=== PATIENT | female | born 1945 | race Caucasian/White ===

== ENCOUNTER 2017-07-07 12:19 | Day surgery (SDC) | payer MEDICARE, BC ==
[2017-07-07] MEDS ORDERED: PROPOFOL 20 ML ×2 (14:10→17:09)
[2017-07-07] MEDS ORDERED: PHENYLephrine (100 MCG/ML) 5ML SYG (14:10)
[2017-07-08] MEDS ORDERED: POLYETHYLENE GLYCOL 3350 119 GM POWDER PO (06:00)
[2017-07-08] MEDS ORDERED: BISACODYL (EC) 5 MG TAB PO (08:00)
== END 2017-07-07 19:28 | disposition home or self-care (01) ==
LOC: GIL 12:19
DX: C18.9 Malignant neoplasm of colon, unspecified (principal); K64.8 Other hemorrhoids; K63.5 Polyp of colon; E03.9 Hypothyroidism, unspecified; E11.9 Type 2 diabetes mellitus without complications; E78.5 Hyperlipidemia, unspecified
CPT/HCPCS: 45380; 82962; 88305

== ENCOUNTER 2019-01-29 11:49 | Day surgery (SDC) | payer MEDICARE, BC ==
[2019-01-29] MEDS ORDERED: GLYCOPYRROLATE 0.4 MG INJ (15:50)
[2019-01-29] MEDS ORDERED: LIDOCAINE 100 MG SYRINGE (15:55)
[2019-01-29] MEDS ORDERED: PROPOFOL 40 ML (15:55)
== END 2019-01-29 21:51 | disposition home or self-care (01) ==
LOC: GIL 11:49
DX: K64.8 Other hemorrhoids (principal); K57.30 Diverticulosis of large intestine without perforation or abscess without bleeding; C18.9 Malignant neoplasm of colon, unspecified; E11.9 Type 2 diabetes mellitus without complications; E03.9 Hypothyroidism, unspecified; E78.5 Hyperlipidemia, unspecified; I10 Essential (primary) hypertension; Z79.82 Long term (current) use of aspirin
CPT/HCPCS: 45380; 82962; 88305